=== PATIENT | male | born 1985 | race Caucasian/White ===

== ENCOUNTER → 2018-02-27 06:32 | Outpatient (CLI) | payer SELFPAY ==
[2018-02-27 07:06] LABS: Cholesterol 225 mg/dL (200); Glucose 114 mg/dL (74-106); High Density Lipoprotein 35 mg/dL; Triglycerides 672 mg/dL
== END ==
PROVIDERS: Family Provider Internal Medicine; PCP Internal Medicine; Visit Provider Internal Medicine
DX: R69 Illness, unspecified (principal)
CPT/HCPCS: 36415; 80061; 82947